=== PATIENT | male | born 1975 | race Caucasian/White ===

== ENCOUNTER 2019-01-17 13:52 | Emergency (ER) | payer MEDICARE ==
[~2019-01-17] VITALS: Ht 175.3 cm; Wt 72.7 kg
[2019-01-17] MEDS ORDERED: KLONOPIN0.5 MG PO (14:32)
[2019-01-17] MEDS ORDERED: CLONAZEPAM1 M1 PO (14:32)
[2019-01-17] MEDS ORDERED: KLONOPIN1 MG PO ×2 (14:33)
[2019-01-17 15:20] VITALS: BP 120/69
== END 2019-01-17 15:20 | disposition home or self-care (01) ==
LOC: ED 13:52
DX: M25.511 Pain in right shoulder (principal); G40.909 Epilepsy, unspecified, not intractable, without status epilepticus; W01.0XXA Fall on same level from slipping, tripping and stumbling without subsequent striking against object, initial encounter; Y92.009 Unspecified place in unspecified non-institutional (private) residence as the place of occurrence of the external cause; Z87.820 Personal history of traumatic brain injury

== ENCOUNTER 2021-06-17 07:55 | Emergency (ER) | payer MEDICARE ==
[~2021-06-17] VITALS: Ht 175.3 cm; Wt 77.2 kg
[~2021-06-17 07:55] MED LIST: CLONAZEPAM1 M1 PO; KLONOPIN0.5 MG PO; KLONOPIN1 MG PO
[2021-06-17] MEDS ORDERED: CLONAZEPAM1 MG PO (08:21)
[2021-06-17] MEDS ORDERED: CELEXA20 MG PO (08:22)
[2021-06-17] MEDS ORDERED: LAMOTRIGINE ER300 MG PO (08:23)
[2021-06-17] MEDS ORDERED: GABAPENTIN100 MG PO (08:23)
[2021-06-17] MEDS ORDERED: FLEXERIL5 M1 PO (09:46)
[2021-06-17] MEDS ORDERED: MOTRIN800 MG PO (09:46)
[2021-06-17 10:05] VITALS: BP 132/67
== END 2021-06-17 10:05 | disposition home or self-care (01) ==
LOC: ED 07:55
DX: S39.012A Strain of muscle, fascia and tendon of lower back, initial encounter (principal); G40.909 Epilepsy, unspecified, not intractable, without status epilepticus; X58.XXXA Exposure to other specified factors, initial encounter; Z87.820 Personal history of traumatic brain injury